=== PATIENT | male | born 2000 | race Caucasian/White ===

== ENCOUNTER 2021-05-27 17:37 | Emergency (ER) | payer OTHER ==
[~2021-05-27] VITALS: Ht 185.4 cm; Wt 113.4 kg
[2021-05-27 19:06] VITALS: BP 124/76
== END 2021-05-27 19:07 | disposition home or self-care (01) ==
LOC: ER 18:40
DX: R50.9 Fever, unspecified (principal); R05 Cough; R06.02 Shortness of breath; U07.1 COVID-19; F17.210 Nicotine dependence, cigarettes, uncomplicated
CPT/HCPCS: 99282